=== PATIENT | female | born 1985 | race Caucasian/White ===

== ENCOUNTER 2021-09-30 10:37 | Emergency (ER) | payer SELFPAY ==
--- NOTE | 2021-09-30 10:39 | ED.LOWEXIN ---
HPI - Extremity Injury (Lower) General Chief Complaint: Wound/Laceration Stated Complaint: Left Foot Injury Time Seen by Provider: 09/30/21 10:40 Source: patient and RN notes reviewed History of Present Illness HPI Narrative: Patient is a 36-year-old female who presents the urgent care with complaints of a puncture wound to the left heel. Patient states that she did have a shoe on that was fairly thick and stepped on an old kyree nail puncturing the heel. Patient states that she is not concerned with the wound, it did not bleed much and is not causing her any pain. However, patient is not up-to-date on her tetanus shot. No other acute complaints. No acute distress noted. Patient aware of the plan of care. Some parts of this dictation were generated by voice recognition software and may contain typographical and/or grammatical inaccuracies. Related Data Home Medications Medication Instructions Recorded Confirmed No Home Medications 09/30/21 09/30/21 Allergies Allergy/AdvReac Type Severity Reaction Status Date / Time No Known Allergies Allergy Unknown Verified 09/30/21 10:49 Review of Systems Review of Systems: CONSTITUTIONAL: Denies fever, chills, or sweats. EYES: Denies visual changes, redness, or discharge. ENT: Denies rhinorrhea, congestion, sore throat, or otalgia. CARDIOVASCULAR: Denies chest pain, palpitations, or edema. RESPIRATORY: Denies cough or dyspnea. GASTROINTESTINAL: Denies abdominal pain, nausea, vomiting, or diarrhea. GENITOURINARY: Denies dysuria or hematuria. SKIN: Reports of a puncture wound to the left heel MUSCULOSKELETAL: Denies back pain, joint pain, or myalgia. NEUROLOGIC: Denies headache, numbness, or weakness. All other systems reviewed are negative, except as documented in HPI. ON LICENSE OF [facility] Family History Family History (Updated 06/24/12 @ 10:57 by DOCTOR UNKNOWN) Other Family history of cardiovascular disease Family history of malignant neoplasm Hypertension Social History Social History Alcohol intake: current Comments At the time of my signature, I reviewed and agree with the nursing past medical, surgical, social, and family history. There is no relevant family history pertinent to the patient complaint. Exam Narrative: GENERAL: This is a well-nourished, well-developed patient, in no apparent distress. HEAD: normocephalic, atraumatic. EYES: PERRL. Sclera clear/white. Vision is grossly intact. EARS: External ears normal NOSE: External nose normal with no obvious nasal discharge, nares without redness, no rhinorrhea. THROAT: Mucous membranes moist NECK: Neck supple CARDIOVASCULAR: Regular rate and rhythm without murmurs, gallops, or rubs. RESPIRATORY: Clear to auscultation. Breath sounds equal bilaterally. No wheezes, rales, or rhonchi. SKIN: Approximated nonbleeding puncture wound to the left plantar heel. Warm, intact with no suspicious lesions or rash, good texture and turgor. NEURO: awake, alert, and oriented to person, place and time. There were no obvious focal neurologic abnormalities. EXTREMITIES: No clubbing, cyanosis, or edema. Positive strong left pedal pulse with capillary refill less than 2 seconds. Course Course Level of Care: Express Care Visit Vital Signs Vital signs: Vital Signs Temperature 98.7 F 09/30/21 10:44 Pulse Rate 96 09/30/21 10:44 Respiratory Rate 20 09/30/21 10:44 Blood Pressure 144/81 H 09/30/21 10:44 Pulse Oximetry 100 09/30/21 10:44 Oxygen Delivery Room Air 09/30/21 10:44 Temperature 98.7 F 09/30/21 10:44 Pulse Rate 96 09/30/21 10:44 Respiratory Rate 20 09/30/21 10:44 Blood Pressure 144/81 H 09/30/21 10:44 Pulse Oximetry 100 09/30/21 10:44 Oxygen Delivery Room Air 09/30/21 10:44 Reviewed reviewed patient is informed that they may have pre-hypertension or hypertension based on a blood pressure reading in the department. I recommend the patient call the primary care provider listed on the
[2021-09-30 10:44] VITALS: BP 144/81; PULSE 96; RESP 20; TEMP 37.1; O2SAT 100
[2021-09-30] MEDS: TETANUS,DIPHTHERIA,AC PERTUSSIS ADULT (0.5 ML) BOOSTRIX IM (10:53)
== END 2021-09-30 11:10 | disposition home or self-care (01) ==
PROVIDERS: Emergency Provider Nurse Practitioner Family; PCP Family Medicine
DX: S91.332A Puncture wound without foreign body, left foot, initial encounter (principal); W45.0XXA Nail entering through skin, initial encounter; Z23 Encounter for immunization; Z86.711 Personal history of pulmonary embolism
CPT/HCPCS: 90471; 90715; 99212; G0463